=== PATIENT | male | born 1980 | race Caucasian/White ===

== ENCOUNTER 2021-06-18 13:20 | Emergency (ER) | payer BC, OTHER ==
[2021-06-18] MEDS ORDERED: predniSONE 20 MG Tab PO ONE (16:14)
[2021-06-18] MEDS ORDERED: Diazepam 2 MG Tab PO ONE (16:15)
[2021-06-18] MEDS ORDERED: Ondansetron 4 MG/2 ML SDV IVPUSH ONE (16:16)
[2021-06-18] MEDS ORDERED: HYDROmorphone 1 MG/ML Syringe IM ONE (16:16)
[2021-06-18] MEDS ORDERED: Diazepam 5 MG Tab PO ONE (16:19)
[2021-06-18] MEDS ORDERED: Ondansetron 4 MG Tab.DIS PO ONE (16:24)
--- NOTE | 2021-06-18 16:28 | EDM.PDOC ---
ED HPI GENERAL MEDICAL PROBLEM - General Chief Complaint: Back Pain or Injury Stated Complaint: SLIPPED DISC Time Seen by Provider: 06/18/21 16:01 Source of Information: Reports: Patient History Limitations: Reports: No Limitations - History of Present Illness INITIAL COMMENTS - FREE TEXT/NARRATIVE: HISTORY AND PHYSICAL: History of present illness: The patient is a 40-year-old male who presents to the emergency department with complaints of bilateral but and posterior upper leg pain that started when he got out of bed this morning. The patient has a history of sciatica patient has had some low back pain for months and has been seeing a chiropractor. He has not seen a physician nor physical therapy for this. The patient does not have any numbness in his legs. The patient states that he is able to walk but it is very painful. The patient has been unable to relieve the pain he has tried heat Tylenol and Motrin. Patient denies any fever, chills, headache, change in vision, syncope or near syncope. Denies any chest pain, back pain, shortness of breath or cough. Denies any abdominal pain, nausea, vomiting, diarrhea, constipation or dysuria. Has not noted any blood in urine or stool. Patient has been eating and drinking appropriately. Review of systems: As per history of present illness and below otherwise all systems reviewed and negative. Past medical history: As per history of present illness and as reviewed below otherwise noncontributory. Surgical history: As per history of present illness and as reviewed below otherwise noncontributory. Social history: See social history for further information Family history: As per history of present illness and as reviewed below otherwise noncontributory. Physical exam: General: Well developed and well nourished. Alert and orientated x 3. Nontoxic in appearance and in no acute distress. Vital signs are stable and have been reviewed by me. Nursing notes were reviewed. HEENT: Atraumatic, normocephalic, pupils equal and reactive bilaterally, negative for conjunctival pallor or scleral icterus, mucous membranes moist, TMs normal bilaterally, throat clear, neck supple, nontender, trachea midline. No drooling or trismus noted. No meningeal signs. No hot potato voice noted. Lungs: Clear to auscultation bilaterally. No wheezes, rales, or rhonchi. Chest nontender. Normal work of breathing, no accessory muscles used. Heart: S1S2, regular rate and rhythm without overt murmur, gallops, or rubs. No JVD. No peripheral edema Abdomen: Soft, nondistended, nontender. Normoactive bowel sounds. Negative for masses or costovertebral tenderness. Skin: Intact, warm, dry. No lesions or rashes noted. Hematologic: No petechiae or purpra. Mucosa appropriate color and normal nail bed color and refill. Back: Neck and back have no deformities, external skin changes, or signs of trauma. Curvature of the cervical, thoracic, and lumbar spine are within normal limits. Bony features of the shoulders and hips are of equal height bilaterally. Posture is upright, gait is smooth, steady, and within normal limits. No tenderness is noted on palpation of the spinous processes. Spinous processes are midline. Cervical, thoracic, and lumbar paraspinal muscles are not tender and are without spasm. Moderate to severe discomfort is noted with flexion, extension, and [id number] rotation of the cervical spine, decrease range of motion is noted due to pain. Decrease range of motion including flexion, extension, and [id number] rotation of the thoracic and lumbar spine are noted due to pain. Extremities: Atraumatic, moves all extremities per self wit difficulty due to pain, negative for cords or calf pain. Neurovascular unremarkable. Neuro: Awake, alert, oriented. Cranial nerves II through XII unremarkable. Cerebellum unremarkable. Motor and sensory unremarkable throughout. Exam nonfocal. Psychiatric: Mood and affect are appropriate. Normal thought process. Answering questions appropriately. Notes: *This patient was seen and evaluated during the 2019 SARS-CoV-2 novel coronavirus pandemic period. Community viral transmission is ongoing at time of this encounter and the emergency department is operating under pandemic response procedures. As stated above the patient is a 40-year-old male who presents to the emergency department for complaints of bilateral buttock and posterior upper thigh pain that started after he got out of bed this morning. I found the patient in the waiting room on his knees bent over a chair. As if in a praying position. The patient was able to get up on his own and ambulate to the triage room. The patient is able to bear his own weight and has no weakness. The patient's back exam did not have any tenderness over the spinal processes. The patient is ext remely tender on his mid to lateral buttocks. The patient's pain extends from mid to lateral buttocks to posterior thighs. This is most likely due to bilateral sciatica. I will treat the patient's pain and then obtain a lower back x-ray. The patient is agreeable with this plan. I have ordered Valium 10 mg, Dilaudid 1 mg, Zofran 4 mg p.o. and prednisone 80 mg. Lumbar x-ray IMPRESSION: 1. No acute fracture. 2. Mild loss of intervertebral disc height at L4-L5 and L5-S1. 3. Slight posterior listhesis of L5 on S1. The patient is still in a kneeling position as he is unable to get comfortable. He is able to move with less discomfort and ambulate with less discomfort. I will treat his remaining pain with Percocet 325/10 while in the emergency department. I discussed the lumbar x-ray results with the patient and the need for him to see his primary care provider and possibility of therapy. I asked the patient to see his primary care prior to seeing his chiropractor. Patient verbalized understanding and feels that he is able to go home and get some rest. I have talked with the patient about today's findings, in addition to providing specific details for plan of care. Reassessment at the time of disposition demonstrates that the patient is in no acute distress. The patient is stable for discharge, counseling was provided and we discussed in great detail signs and symptoms that would prompt them to return to the Emergency Department. Medication, follow up and supportive care measures were reviewed and discussed. Voices understanding and is agreeable to plan of care. Denies any further questions or concerns at this time. Diagnostics: Lumbar plain film Therapeutics:Valium 10 mg, Dilaudid 1 mg, Zofran 4 mg p.o. and prednisone 80 mg Prescription: Valium 10 mg at bedtime x3, prednisone 40 mg daily x5 days, Norflex 100 mg p.o. twice daily for 10 days as needed, Percocet 325/5 mg p.o. every 4-6 hours as needed Impression: Sciatica Plan: 1. You were evaluated today on an emergent basis. Your complaints of bilateral buttocks and upper thigh pain was evaluated is most likely sciatica. I treated your pain with Valium to relax your body, Dilaudid for pain management, prednisone for inflammation, and Zofran to prevent nausea. Your lumbar x-ray IMPRESSION: 1. No acute fracture. 2. Mild loss of intervertebral disc height at L4-L5 and L5-S1. 3. Slight posterior listhesis of L5 on S1. I have prednisone 40 mg daily x5 days, Norflex 100 mg p.o. twice daily for 10 days as needed which was called to the [facility] pharmacy. I also wrote paper scripts for Valium 10 mg at bedtime x3 and Percocet 325/5 mg p.o. every 4-6 hours as needed. You need to follow-up with your primary care provider as you might need an MRI. You might just need to follow-up with physical therapy for an appropriate assessment and exercises to prevent this from happening again. Need to return to the emergency department if you lost control of your bowels or bladder or was unable to stand on your own. 2. You can alternate Tylenol and ibuprofen as needed for pain and fever management. 3. We encourage you to follow up with your primary care provider and/or recomm ended specialist in the next few days for re-evaluation and further care/management. 4. If your symptoms should worsen, new symptoms develop or any of the signs and symptoms we discussed should arise please return to the emergency room or call 911 (if needed). Definitive disposition and diagnosis as appropriate pending reevaluation and review of above. Left Hip Pain Score (Numeric/FACES): 10 - Related Data Allergies Allergy/AdvReac Type Severity Reaction Status Date / Time No Known Allergies Allergy Verified 06/18/21 17:01 Home Meds: Home Meds Orphenadrine [Norflex] 100 mg PO BID PRN 10 Days #20 tab 06/18/21 [Rx] diazePAM [Valium] 10 mg PO BEDTIME 3 Days #3 tablet 06/18/21 [Rx] predniSONE [Prednisone] 40 mg PO DAILY 5 Days #10 tablet 06/18/21 [Rx] ED ROS GENERAL - Review of Systems Review Of Systems: Comprehensive ROS is negative, except as noted in HPI. ED EXAM,LOWER BACK PAIN/INJURY - Physical Exam Exam: See Below (See dictation) Course - Vital Signs Last Recorded V/S: Last Vital Signs Temp 97.0 F 06/18/21 18:26 Pulse 75 06/18/21 18:26 Resp 18 06/18/21 18:26 BP 132/85 06/18/21 18:26 Pulse Ox 95 06/18/21 18:26 - Orders/Labs/Meds Meds: Medications Discontinued Medications Generic Name Dose Route Start Last Admin Trade Name Freq PRN Reason Stop Dose Admin Diazepam 4 mg 06/18/21 16:15 06/18/21 16:42 Diazepam 2 Mg Tab PO 06/18/21 16:16 Not Given ONETIME ONE Diazepam 10 mg 06/18/21 16:19 06/18/21 16:41 Diazepam 5 Mg Tab PO 06/18/21 16:20 10 mg ONETIME ONE Administration Hydromorphone HCl 1 mg 06/18/21 16:16 06/18/21 16:41 Hydromorphone 1 Mg/Ml Syringe IM 06/18/21 16:17 1 mg ONETIME ONE Administration Ondansetron HCl 4 mg 06/18/21 16:16 06/18/21 16:42 Ondansetron 4 Mg/2 Ml Sdv IVPUSH 06/18/21 16:17 Not Given ONETIME ONE Ondansetron HCl 4 mg 06/18/21 16:24 06/18/21 16:41 Ondansetron 4 Mg Tab.Dis PO 06/18/21 16:25 4 mg ONETIME ONE Administration Oxycodone/Acetaminophen 1 tab 06/18/21 18:24 Acetaminophen/Oxycodone 325-10 Mg Tab PO 06/18/21 18:25 ONETIME ONE Prednisone 80 mg 06/18/21 16:14 06/18/21 16:41 Prednisone 20 Mg Tab PO 06/18/21 16:15 80 mg ONETIME ONE Administration Departure - Departure Time of Disposition: 18:35 Disposition: Home, Self-Care 01 Condition: Good Clinical Impression: Sciatica Qualifiers: Laterality: bilateral Qualified Code(s): M54.31 - Sciatica, right side - Discharge Information *PRESCRIPTION DRUG MONITORING PROGRAM REVIEWED*: No *COPY OF PRESCRIPTION DRUG MONITORING REPORT IN PATIENT HAMZAH: No Prescriptions: Orphenadrine [Norflex] 100 mg PO BID PRN 10 Days #20 tab PRN Reason: Muscle Spasm - Painful predniSONE [Prednisone] 40 mg PO DAILY 5 Days #10 tablet diazePAM [Valium] 10 mg PO BEDTIME 3 Days #3 tablet Instructions: Sciatica, [id number] Referrals: Reji Lucas MD [Primary Care Provider] - Forms: ED Department Discharge Additional Instructions: The following information is given to patients seen in the emergency department who are being discharged to home. This information is to outline your options for follow-up care. We provide all patients seen in our emergency department with a follow-up referral. The need for follow-up, as well as the timing and circumstances, are variable depending upon the specifics of your emergency department visit. If you don't have a primary care physician on staff, we will provide you with a referral. We always advise you to contact your personal physician following an emergency department visit to inform them of the circumstance of the visit and for follow-up with them and/or the need for any referrals to a consulting specialist. The emergency department will also refer you to a specialist when appropriate. This referral assures that you have the opportunity for follow-up care with a specialist. All of these measure are taken in an effort to provide you with optimal care, which includes your follow-up. Under all circumstances we always encourage you to contact your private physician who remains a resource for coordinating your care. When calling for follow-up care, please make the office aware that this follow-up is from your recent emergency room visit. If for any reason you are refused follow-up, please contact the [facility] Emergency Department at and asked to speak to the emergency department charge nurse. [facility] [address] [place] [address] [place] [address] Plan: 1. You were evaluated today on an emergent basis. Your complaints of bilateral buttocks and upper thigh pain was evaluated is most likely sciatica. I treated your pain with Valium to relax your body, Dilaudid for pain management, prednisone for inflammation, and Zofran to prevent nausea. Your lumbar x-ray IMPRESSION: 1. No acute fracture. 2. Mild loss of intervertebral disc height at L4-L5 and L5-S1. 3. Slight posterior listhesis of L5 on S1. I have prednisone 40 mg daily x5 days, Norflex 100 mg p.o. twice daily for 10 days as needed which was called to the [facility] pharmacy. I also wrote paper scripts for Valium 10 mg at bedtime x3 and Percocet 325/5 mg p.o. every 4-6 hours as needed. You need to follow-up with your primary care provider as you might need an MRI. You might just need to follow-up with physical therapy for an appropriate assessment and exercises to prevent this from happening again. Need to return to the emergency department if you lost control of your bowels or bladder or was unable to stand on your own. 2. You can alternate Tylenol and ibuprofen as needed for pain and fever manage ment. 3. We encourage you to follow up with your primary care provider and/or recommended specialist in the next few days for re-evaluation and further care/management. 4. If your symptoms should worsen, new symptoms develop or any of the signs and symptoms we discussed should arise please return to the emergency room or call 911 (if needed). Sepsis Event Note (ED) - Focused Exam Vital Signs: Vital Signs Temp Pulse Resp BP Pulse Ox 06/18/21 18:26 97.0 F 75 18 132/85 95 06/18/21 17:03 98.2 F 74 18 134/65 97
--- NOTE | 2021-06-18 18:18 | CR ---
HISTORY: Low back pain. TECHNIQUE: Three views of the lumbar spine. COMPARISON: No prior. FINDINGS: Five lumbar type vertebral bodies. There is no acute lumbar fracture. Slight posterior listhesis of L5 on S1. Mild loss of disc height at that level and L4-L5. There is no acute fracture. The sacroiliac joints appear maintained. IMPRESSION: 1. No acute fracture. 2. Mild loss of intervertebral disc height at L4-L5 and L5-S1. 3. Slight posterior listhesis of L5 on S1. Dictated by Perry Hui MD @ 06/18/2021 6:17:08 PM (Electronically Signed)
[2021-06-18] MEDS ORDERED: Acetaminophen/oxyCODONE 325-10 MG Tab PO ONE (18:24)
== END 2021-06-18 18:46 | disposition home or self-care (01) ==
LOC: MW.ED 13:20
DX: M54.41 Lumbago with sciatica, right side (principal)
CPT/HCPCS: 72100; 96372; 99283; A9270; J1170